=== PATIENT | female | born 1960 | race Caucasian/White ===

== ENCOUNTER → 2018-12-29 | Outpatient (CLI) | payer OTHER ==
[~2018-12-29] MED LIST: ABAT250V IV; ALBU3IS INH; ALBU90OI6 INH; ATOR10; ATOR80 PO; CIPR500 PO; DOXY100 PO; FLUSAL2505 INH; GLIP10 PO; INSU100I6 SC; LEVEMIR FL100 UNIT/1 SC; LISI5 PO; Lisinopril2.5 MG PO; METF500C PO; METO50ER PO; OMEPRAZOLE MAGN20 MG PO; OXYACE7.5T PO; POTCHL20ER PO; Prozac20 MG
[2018-12-29 09:52] LABS: Influenza A Negative (NEGATIVE); Influenza B Negative (NEGATIVE)
== END | disposition home or self-care (01) ==
LOC: LAB SHORT 09:16 → LAB 09:16
PROVIDERS: Family Medicine
DX: R05 Cough (principal)
CPT/HCPCS: 87804